=== PATIENT | female | born 1960 | race African-American/Black ===

== ENCOUNTER 2022-06-18 20:37 | Emergency (ER) | payer MEDICAID ==
[~2022-06-18] VITALS: Ht 170.2 cm; Wt 60.0 kg
[2022-06-18 20:44] VITALS: BP 162/92
[2022-06-19 00:41] LABS: HEMATOCRIT. 39.3 % (36.0-48.0); HEMOGLOBIN. 13.4 g/dL (12.0-16.0); MEAN CORPUSCULAR HEMOGLOBIN 30.6 pg (28.0-32.0); MEAN CORPUSCULAR VOLUME 89.4 fL (81.0-99.0); MEAN PLATELET VOLUME 7.5 fl (7.4-10.4); PLATELET 308 x1000/uL (130-400); RED BLOOD CELL COUNT 4.39 mill/uL (4.2-5.4); RED CELL DISTRIBUTION WIDTH 13.9 % (11.6-14.6)
[2022-06-19 00:45] LABS: CHLORIDE 103 mEq/L (98-107)
[2022-06-19 03:21] LABS: PLATELET ESTIMATE NORMAL
[2022-06-19] MEDS ORDERED: IBUP-2028 MT (04:38)
== END 2022-06-19 09:10 | disposition home or self-care (01) ==
LOC: ER 20:37
DX: M54.50 Low back pain, unspecified (principal); F31.9 Bipolar disorder, unspecified; R07.89 Other chest pain; Z88.0 Allergy status to penicillin
CPT/HCPCS: 36415; 71045; 80053; 84484; 85025; 93005; 99285